=== PATIENT | female | born 1990 | race Caucasian/White ===

== ENCOUNTER → 2017-06-28 | Day surgery (SDC) | payer OTHER ==
[~2017-06-28] MED LIST: LIDOCAINE 1% INJ-PF (10 MG/ML) 30 ML SDV ONE
--- NOTE | 2017-06-28 16:11 | RADIOLOGY REPORT (SQ) ---
EXAM DESCRIPTION: FLUORO/NEEDLE PLACEMENT; ARTHRO HIP INJ W/ANESTHESIA COMPLETED DATE/TIME: 06/28/2017 2:26 pm REASON FOR STUDY: RIGHT HIP PAIN (M25.551) M25.551 PAIN IN RIGHT HIP COMPARISON: None. FLUOROSCOPY TIME: 10 seconds 1 digital radiographic images saved to PACS. LIMITATIONS: None. PROCEDURE: Procedure, risks, benefits and alternatives explained to patient who then gave written c onsent. The right hip was marked and a time-out was called for correct marking verification. Entry site marked using fluoroscopic guidance. Hip prepped and draped using sterile technique. Local ane sthesia achieved using 7 mL of 1% lidocaine injection. 22 gauge spinal needle introduced into the coy int space under direct fluoroscopic visualization. Non-ionic contrast instilled to confirm intra-art icular position. Dilute gadolinium solution then injected. Needle removed and entry site covered w ith sterile bandage. No immediate complications noted. TECHNIQUE: Digital images acquired during fluoroscopy and stored on PACS. Patient immediately take n to the MR suite for additional imaging. INJECTION LOCATION: Right hip CONTRAST TYPE AND AMOUNT: 1 mL of Isovue-300 was injected to confirm intra-articular needle placement , followed by 8 mL of dilute Prohance/Saline mixture. IMPRESSION: SUCCESSFUL NEEDLE PLACEMENT AND INJECTION FOR RIGHT HIP MR ARTHROGRAM. COMMENT: Quality ID 145: Final reports for procedures using fluoroscopy that document radiation exp osure indices, or exposure time and number of fluorographic images (if radiation exposure indices are not available) TECHNICAL DOCUMENTATION: JOB ID: [id number] [employer]- All Rights Reserved Reading location - IP/workstation name: [facility]
--- NOTE | 2017-06-28 16:12 | RADIOLOGY REPORT (SQ) ---
EXAM DESCRIPTION: FLUORO/NEEDLE PLACEMENT; ARTHRO HIP INJ W/ANESTHESIA COMPLETED DATE/TIME: 06/28/2017 2:26 pm REASON FOR STUDY: RIGHT HIP PAIN (M25.551) M25.551 PAIN IN RIGHT HIP COMPARISON: None. FLUOROSCOPY TIME: 10 seconds 1 digital radiographic images saved to PACS. LIMITATIONS: None. PROCEDURE: Procedure, risks, benefits and alternatives explained to patient who then gave written c onsent. The right hip was marked and a time-out was called for correct marking verification. Entry site marked using fluoroscopic guidance. Hip prepped and draped using sterile technique. Local ane sthesia achieved using 7 mL of 1% lidocaine injection. 22 gauge spinal needle introduced into the coy int space under direct fluoroscopic visualization. Non-ionic contrast instilled to confirm intra-art icular position. Dilute gadolinium solution then injected. Needle removed and entry site covered w ith sterile bandage. No immediate complications noted. TECHNIQUE: Digital images acquired during fluoroscopy and stored on PACS. Patient immediately take n to the MR suite for additional imaging. INJECTION LOCATION: Right hip CONTRAST TYPE AND AMOUNT: 1 mL of Isovue-300 was injected to confirm intra-articular needle placement , followed by 8 mL of dilute Prohance/Saline mixture. IMPRESSION: SUCCESSFUL NEEDLE PLACEMENT AND INJECTION FOR RIGHT HIP MR ARTHROGRAM. COMMENT: Quality ID 145: Final reports for procedures using fluoroscopy that document radiation exp osure indices, or exposure time and number of fluorographic images (if radiation exposure indices are not available) TECHNICAL DOCUMENTATION: JOB ID: [id number] [email or web address]- All Rights Reserved Reading location - IP/workstation name: [facility]
--- NOTE | 2017-06-28 16:15 | RADIOLOGY REPORT (SQ) ---
EXAM DESCRIPTION: MRI RT LOWER JOINT WITH COMPLETED DATE/TIME: 06/28/2017 3:48 pm REASON FOR STUDY: RIGHT HIP PAIN (M25.551) M25.551 PAIN IN RIGHT HIP COMPARISON: None. TECHNIQUE: Post arthrogram imaging is performed using T1 and T1 and T2 fat saturated sequences of th e pelvis and specific hip of interest. LIMITATIONS: None. FINDINGS: RIGHT HIP JOINT DISTENSION: Adequate. No loose body. BONE MARROW: No edema. No marrow replacement. FEMORAL HEAD, NECK, AND ACETABULUM: No occult fracture. No osteophytes or subchondral cysts. Normal s phericity of femoral head/neck junction. No acetabular dysplasia. No evidence of femoroacetabular imp ingement. LABRUM AND CARTILAGE: There is a diffuse superior labral tear best shown on coronal series 6, images 9-13. There is also an inferior posterior right acetabular labral tear on coronal image 17. No para labral cysts. LIMITED VIEW NON ARTHROGRAM LEFT HIP: Unremarkable PUBIC RAMI AND ISCHIUM: No occult fracture. SACRUM AND [place]: SI joints normal in signal. No occult fracture. MUSCLES AND SOFT TISSUES: Adductors and piriformis normal. Abductors and greater trochanteric bursa n ormal without edema or fluid. Iliopsoas bursa without fluid. Hamstring attachments without edema or t ear. PELVIC SOFT TISSUES: No masses or adenopathy. SCIATIC NERVE: Identified without masses. OTHER: No other significant finding. IMPRESSION: RIGHT ACETABULAR LABRAL TEAR SUPERIORLY AND POSTEROINFERIORLY. NO PARALABRAL CYSTS. TECHNICAL DOCUMENTATION: JOB ID: [id number] [employer]- All Rights Reserved Reading location - IP/workstation name: [facility]
== END ==
LOC: RAD 13:20
PROVIDERS: ATTEND Family Medicine
DX: M25.551 Pain in right hip (principal)
CPT/HCPCS: 73722; 77002; 27095; A9576; J3490